=== PATIENT | female | born 1955 | race American Indian/Alaskan Native ===

== ENCOUNTER 2018-02-21 17:18 | Emergency (ER) | payer MEDICARE ==
[2018-02-21] MEDS ORDERED: TYLENOL PO ONE (19:37)
[2018-02-21 19:38] VITALS: BP 148/99
[2018-02-21] MEDS ORDERED: TYLENOL ONE (19:42)
--- NOTE | 2018-02-21 21:05 | XRay Report ---
FINAL REPORT EXAM: XR SPINE LUMBOSACRAL 2-3V HISTORY: lower back pain TECHNIQUE: AP, lateral and coned-down views of lumbar spine. PRIORS: None. FINDINGS: Mild endplate sclerosis and spurring in the lower thoracic spine and L1-3 levels. Lumbar disc spaces maintained. Mild dextroconvex curvature may be positional versus soft tissue spasm. No loss of height or gross malalignment of lumbar vertebral bodies. Curvilinear lucencies in the L1 and L2 transverse processes may represent Mach band artifact. No obvious osseous destruction. Paraspinal soft tissues grossly unremarkable. IMPRESSION: 1. No acute compression deformity or gross malalignment in the lumbar spine. 2. Degenerative changes.
[2018-02-21 23:58] LABS: HCG Qualitative,Urine Negative (Negative)
--- NOTE | 2018-02-22 00:27 | Emergency Department Report ---
ED Fall HPI - General Chief Complaint: Extremity Injury, Lower Stated Complaint: HIP/SHOULDER PAIN Time Seen by Provider: 02/21/18 23:57 Source: patient Mode of arrival: Ambulatory - History of Present Illness Initial Comments: 62-year-old -[place] female comes to the emergency room to be evaluated after having a fall from ground level approximately 3:50-4:00pm. Patient reports that she tripped over a pipe and later left side. She complains of right wrist left upper arm and left trapezius. Patient denies hitting her head denies any loss of consciousness. Patient reports she has a past medical history of SAD, depression, sciatica. MD Complaint: fall -: hour(s) (8) Fall From: standing Fall Witnessed: no Place Fall Occurred: street Loss of Consciousness: none Prolonged Down Time?: no Symptoms Prior to Fall: none Location: back Location - Extremities: Left: Shoulder Quality: dull, aching Context: tripped/slipped Associated Symptoms: denies: headache, numbness, chest paint, unable to walk, lightheaded, vertigo - Related Data Previous Rx's Medication Instructions Recorded Last Taken Type Ibuprofen [Motrin] 600 mg PO Q8H PRN #40 tablet 06/16/15 Unknown Rx Metaxalone [Skelaxin] 800 mg PO TID #40 tablet 06/16/15 Unknown Rx Ibuprofen [Motrin] 800 mg PO Q8HR PRN #30 tablet 11/17/15 Unknown Rx Naproxen [Naprosyn TAB] 375 mg PO BID #14 tablet 11/17/15 Unknown Rx traMADol [Ultram 50 MG tab] 50 mg PO Q6HR PRN #20 tablet 11/17/15 Unknown Rx Acetaminophen/Codeine [Tylenol #3] 1 tab PO Q6H PRN #20 tab 11/22/15 Unknown Rx Cyclobenzaprine [Flexeril] 10 mg PO TID PRN #20 tablet 11/22/15 Unknown Rx Ibuprofen [Motrin 600 MG tab] 600 mg PO Q8H PRN #30 tablet 11/22/15 Unknown Rx Cyclobenzaprine [Flexeril] 10 mg PO TID PRN #14 tablet 08/08/16 Unknown Rx HYDROcodone/APAP 5-325 [[place] 1 - 2 each PO Q6HR PRN #14 tablet 08/08/16 Unknown Rx 5/325] Ibuprofen [Motrin 800 MG tab] 800 mg PO Q8HR PRN #20 tablet 08/08/16 Unknown Rx Baclofen [Lioresal] 10 mg PO TID #15 tab 02/22/18 Unknown Rx Ibuprofen [Motrin 800 MG tab] 800 mg PO Q8HR #30 tablet 02/22/18 Unknown Rx Allergies Allergy/AdvReac Type Severity Reaction Status Date / Time hydroxyzine HCl [From Atarax] Allergy Hives Verified 08/07/16 18:08 Sulfa (Sulfonamide Allergy Itching Verified 08/07/16 18:08 Antibiotics) meperidine HCl [From Demerol] AdvReac Unknown Verified 08/07/16 18:08 ED Review of Systems ROS: Stated complaint: HIP/SHOULDER PAIN Other details as noted in HPI Comment: All other systems reviewed and negative Gastrointestinal: denies: abdominal pain, nausea, diarrhea Genitourinary: denies: urgency, dysuria, discharge Musculoskeletal: back pain, arthralgia (left upper arm, left hip, right wrist) Skin: denies: rash, lesions Neurological: denies: headache, weakness, paresthesias Psychiatric: denies: anxiety, depression ED Past Medical Hx - Past Medical History Previous Medical History?: Yes Hx GERD: Yes Hx Headaches / Migraines: Yes Hx Psychiatric Treatment: Yes (depression, SAD) Additional medical history: lower back pain - Surgical History Past Surgical History?: Yes Additional Surgical History: tubal ligation - Social History Smoking Status: Never Smoker Substance Use Type: None - Medications Home Medications: Home Medications Medication Instructions Recorded Confirmed Last Taken Type Ibuprofen [Motrin] 600 mg PO Q8H PRN #40 tablet 06/16/15 Unknown Rx Metaxalone [Skelaxin] 800 mg PO TID #40 tablet 06/16/15 Unknown Rx Ibuprofen [Motrin] 800 mg PO Q8HR PRN #30 tablet 11/17/15 Unknown Rx Naproxen [Naprosyn TAB] 375 mg PO BID #14 tablet 11/17/15 Unknown Rx traMADol [Ultram 50 MG tab] 50 mg PO Q6HR PRN #20 tablet 11/17/15 Unknown Rx Acetaminophen/Codeine [Tylenol #3] 1 tab PO Q6H PRN #20 tab 11/22/15 Unknown Rx Cyclobenzaprine [Flexeril] 10 mg PO TID PRN #20 tablet 11/22/15 Unknown Rx Ibuprofen [Motrin 600 MG tab] 600 mg PO Q8H PRN #30 tablet 11/22/15 Unknown Rx Cyclobenzaprine [Flexeril] 10 mg PO TID PRN #14 tablet 08/08/16 Unknown Rx HYDROcodone/APAP 5-325 [[place] 1 - 2 each PO Q6HR PRN #14 tablet 08/08/16 Unknown Rx 5/325] Ibuprofen [Motrin 800 MG tab] 800 mg PO Q8HR PRN #20 tablet 08/08/16 Unknown Rx Baclofen [Lioresal] 10 mg PO TID #15 tab 02/22/18 Unknown Rx Ibuprofen [Motrin 800 MG tab] 800 mg PO Q8HR #30 tablet 02/22/18 Unknown Rx ED Physical Exam - General Limitations: No Limitations General appearance: alert, in no apparent distress - Head Head exam: Present: atraumatic, normocephalic - Eye Eye exam: Present: normal appearance - ENT ENT exam: Present: mucous membranes moist - Neck Neck exam: Present: tenderness (left trapezius), full ROM. Absent: lymphadenopathy, thyromegaly - Respiratory Respiratory exam: Present: normal lung sounds bilaterally. Absent: respiratory distress - Cardiovascular Cardiovascular Exam: Present: regular rate, normal rhythm. Absent: systolic murmur, diastolic murmur, rubs, gallop - Extremities Exam Extremities exam: Present: full ROM, tenderness (left upper arm, right wrist) - Expanded Upper Extremity Exam Right Forearm Wrist exam: Present: normal inspection, full ROM. Absent: tenderness, swelling Hand Wrist exam: Present: normal inspection, full ROM, tenderness. Absent: swelling, laceration, deformity, erythema - Expanded Lower Extremity Exam Left Hip exam: Present: full ROM. Absent: tenderness Upper Leg exam: Present: normal inspection Knee exam: Present: normal inspection - Back Exam Back exam: Present: normal inspection, full ROM. Absent: tenderness - Neurological Exam Neurological exam: Present: alert, oriented X3 - Psychiatric Psychiatric exam: Present: normal affect, normal mood ED Course Vital Signs 02/21/18 02/21/18 02/21/18 19:28 19:50 20:50 Temperature 98.5 F Pulse Rate 64 Respiratory 18 18 18 Rate Blood Pressure 148/99 O2 Sat by Pulse 97 Oximetry ED Medical Decision Making - Radiology Data Radiology results: report reviewed, image reviewed FINDINGS: Mild endplate sclerosis and spurring in the lower thoracic spine and L1-3 levels. Lumbar disc spaces maintained. Mild dextroconvex curvature may be positional versus soft tissue spasm. No loss of height or gross malalignment of lumbar vertebral bodies. Curvilinear lucencies in the L1 and L2 transverse processes may represent Mach band artifact. No obvious osseous destruction. Paraspinal soft tissues grossly unremarkable. IMPRESSION: 1. No acute compression deformity or gross malalignment in the lumbar spine. 2. Degenerative changes. Transcribed By: [facility] Dictated By: KAY JOVEL MD Electronically Authenticated By: KAY JOVEL MD Signed Date/Time: 02/21/182100 DD/ 00 TD/TT: 02/21/182100 - Medical Decision Making Patient has been evaluated by this provider fast track. I discussed the patient appears that she has some muscle spasms to her upper left trapezius, contusion to her left upper arm. Discussed patient I'll give her ibuprofen prior to discharge and will discharge patient on ibuprofen and baclofen for muscle spasms. Discussed the patient she needs to follow up with her primary care provider symptoms persist or gets worse. Patient verbalized understanding. Critical care attestation.: If time is entered above; I have spent that time in minutes in the direct care of this critically ill patient, excluding procedure time. ED Disposition Clinical Impression: Muscle spasms of neck, Hip pain, left, Right wrist pain Fall Qualifiers: Encounter type: initial encounter Qualified Code(s): W19.XXXA - Unspecified fall, initial encounter Disposition: TO HOME OR SELFCARE Is pt being admited?: No Does the pt Need Aspirin: No Condition: Stable Additional Instructions: Please take pain medication and muscle relaxant as prescribed. If her symptoms persist or gets worse please follow up with her primary care provider. Prescriptions: Baclofen [Lioresal] 10 mg PO TID #15 tab Ibuprofen [Motrin 800 MG tab] 800 mg PO Q8HR #30 tablet Referrals: PRIMARY CARE, [Primary Care Provider] - 3-5 Days Forms: Work/School Release Form(ED)
[2018-02-22] MEDS ORDERED: MOTRIN PO ONE (00:34)
== END 2018-02-22 01:05 | disposition home or self-care (01) ==
LOC: ED 17:18
DX: M62.838 Other muscle spasm (principal); M25.531 Pain in right wrist; M25.552 Pain in left hip; G43.909 Migraine, unspecified, not intractable, without status migrainosus; F32.9 Major depressive disorder, single episode, unspecified; K21.9 Gastro-esophageal reflux disease without esophagitis; Z88.2 Allergy status to sulfonamides; Z88.8 Allergy status to other drugs, medicaments and biological substances; W18.30XA Fall on same level, unspecified, initial encounter; Y93.89 Activity, other specified; Y99.9 Unspecified external cause status; Y92.89 Other specified places as the place of occurrence of the external cause
CPT/HCPCS: 72100; 81025